=== PATIENT | female | born 2000 | race Caucasian/White ===

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

== ENCOUNTER → 2020-10-05 | Outpatient (CLI) | payer OTHER ==
[2020-10-05 09:24] LABS: HCG, SERUM QUANTITATIVE < 1.0 MIU/ML
[2020-10-05 09:29] LABS: HCG, SERUM QUALITATIVE NEGATIVE (NEGATIVE)
== END ==
LOC: M LAB 08:15
PROVIDERS: ATTEND Nurse Practitioner Family
DX: N91.2 Amenorrhea, unspecified (principal)

== ENCOUNTER → 2021-08-23 | Outpatient (CLI) | payer OTHER ==
[2021-08-23 16:12] LABS: BASO % 0.4 % (0.0-1.0); EOS # 0.2 10^3/uL (0.0-0.5); EOS % 1.6 % (0.0-3.0); HEMATOCRIT 40.8 % (36.0-47.0); HEMOGLOBIN 13.4 g/dl (12.0-15.5); LYMPH # 1.9 10^3/uL (1.5-5.0); LYMPH % 20.3 % (24.0-44.0); MEAN CORPUSCULAR HEMOGLOBIN 26.1 pg (27.0-33.0); MEAN CORPUSCULAR HGB CONC 32.8 g/dl (32.0-36.5); MEAN CORPUSCULAR VOLUME 79.4 fl (80.0-96.0); MONO # 0.6 10^3/uL (0.0-0.8); MONO % 6.6 % (2.0-8.0); NEUTROPHILS # 6.7 10^3/uL (1.5-8.5); NEUTROPHILS % 70.3 % (36.0-66.0); PLATELET COUNT, AUTOMATED 241 10^3/uL (150-450); RED BLOOD COUNT 5.14 10^6/uL (4.00-5.40); WHITE BLOOD COUNT 9.5 10^3/uL (4.0-10.0)
[2021-08-23 17:12] LABS: GC DNA AMPLIFICATION NEGATIVE (NEGATIVE)
== END ==
LOC: M PLALAB 13:04
PROVIDERS: ATTEND Obstetrics & Gynecology
DX: O34.211 Maternal care for low transverse scar from previous cesarean delivery (principal)

== ENCOUNTER → 2021-10-07 | Outpatient (CLI) | payer OTHER | LOC: M WHC 10:02 | PROVIDERS: ATTEND Obstetrics & Gynecology | DX: Z36.89 Encounter for other specified antenatal screening (principal); Z3A.18 18 weeks gestation of pregnancy ==

== ENCOUNTER → 2021-11-30 | Outpatient (CLI) | payer OTHER ==
[2021-11-30 15:48] LABS: HEMATOCRIT 35.4 % (36.0-47.0); HEMOGLOBIN 11.2 g/dl (12.0-15.5); MEAN CORPUSCULAR HEMOGLOBIN 26.4 pg (27.0-33.0); MEAN CORPUSCULAR HGB CONC 31.6 g/dl (32.0-36.5); MEAN CORPUSCULAR VOLUME 83.3 fl (80.0-96.0); PLATELET COUNT, AUTOMATED 203 10^3/uL (150-450); RED BLOOD COUNT 4.25 10^6/uL (4.00-5.40); WHITE BLOOD COUNT 9.4 10^3/uL (4.0-10.0)
[2021-11-30 16:44] LABS: GC DNA AMPLIFICATION NEGATIVE (NEGATIVE)
== END ==
LOC: M PLALAB 11:39
PROVIDERS: ATTEND Obstetrics & Gynecology
DX: Z36.89 Encounter for other specified antenatal screening (principal); Z3A.24 24 weeks gestation of pregnancy

== ENCOUNTER → 2021-11-30 | Outpatient (CLI) | payer OTHER | LOC: M WHC 09:22 | PROVIDERS: ATTEND Obstetrics & Gynecology | DX: Z36.2 Encounter for other antenatal screening follow-up (principal) ==

== ENCOUNTER → 2022-01-25 | Outpatient (REF) | payer OTHER | LOC: M SFHCWAGY 12:54 | PROVIDERS: ATTEND Obstetrics & Gynecology | DX: Z36.89 Encounter for other specified antenatal screening (principal); Z3A.36 36 weeks gestation of pregnancy ==

== ENCOUNTER 2022-01-27 13:42 | Outpatient (CLI) | payer OTHER ==
[~2022-01-27] VITALS: Ht 167.6 cm; Wt 100.4 kg
[2022-01-27] MEDS ORDERED: TUMS750C5 PO (14:02)
[2022-01-27] MEDS ORDERED: ACET-897 PO (14:02)
[2022-01-27] MEDS ORDERED: PRENTAB9 PO (14:02)
[2022-01-27] MEDS ORDERED: HOME MED LIST COMPLETE! XX SCH (14:05)
[2022-01-27 14:06] VITALS: BP 145/86
[2022-01-27 14:58] VITALS: BP 148/85
[2022-01-27 15:56] VITALS: BP 146/88
[2022-01-27 16:07] LABS: HEMATOCRIT 31.2 % (36.0-47.0); HEMOGLOBIN 9.6 g/dl (12.0-15.5); MEAN CORPUSCULAR HEMOGLOBIN 24.2 pg (27.0-33.0); MEAN CORPUSCULAR HGB CONC 30.8 g/dl (32.0-36.5); MEAN CORPUSCULAR VOLUME 78.6 fl (80.0-96.0); PLATELET COUNT, AUTOMATED 223 10^3/uL (150-450); RED BLOOD COUNT 3.97 10^6/uL (4.00-5.40); WHITE BLOOD COUNT 9.9 10^3/uL (4.0-10.0)
[2022-01-27 16:56] VITALS: BP 141/76
[2022-01-27 17:09] VITALS: BP 142/75
[2022-01-27 17:12] LABS: ALBUMIN 2.5 GM/DL (3.2-5.2); ALT/SGPT 12 U/L (12-78); BILIRUBIN,TOTAL 0.7 MG/DL (0.2-1.0); BLOOD UREA NITROGEN 6 MG/DL (7-18); CALCIUM LEVEL 8.3 MG/DL (8.5-10.1); CARBON DIOXIDE LEVEL 24 MEQ/L (21-32); CHLORIDE LEVEL 109 MEQ/L (98-107); CREATININE FOR GFR 0.55 MG/DL (0.55-1.30); GLOMERULAR FILTRATION RATE > 60.0 (>60); GLUCOSE, FASTING 84 MG/DL (70-100); LDH LACTATE DEHYDROGENASE 191 U/L (84-246); POTASSIUM SERUM 4.1 MEQ/L (3.5-5.1); SODIUM LEVEL 138 MEQ/L (136-145); TOTAL PROTEIN 6.1 GM/DL (6.4-8.2); URIC ACID 3.2 MG/DL (2.6-6.0)
[2022-01-27 18:20] LABS: TOTAL PROTEIN,RANDOM URINE 25.1 MG/DL (0.0-12.0)
== END 2022-01-27 17:18 | disposition home or self-care (01) ==
LOC: M LDO 13:42
PROVIDERS: ATTEND Obstetrics & Gynecology
DX: O26.893 Other specified pregnancy related conditions, third trimester (principal); R10.2 Pelvic and perineal pain; O47.03 False labor before 37 completed weeks of gestation, third trimester; Z3A.36 36 weeks gestation of pregnancy

== ENCOUNTER → 2022-02-13 | Outpatient (CLI) | payer OTHER ==
[~2022-02-13] MED LIST: ACET-897 PO; PRENTAB9 PO; TUMS750C5 PO
== END ==
LOC: M LABSMTC 09:58
PROVIDERS: ATTEND Anesthesiology
DX: Z01.812 Encounter for preprocedural laboratory examination (principal)

== ENCOUNTER 2022-02-17 07:03 | Inpatient (IN) | payer OTHER ==
[~2022-02-17] VITALS: Ht 167.6 cm; Wt 103.1 kg
[2022-02-17] VITALS (7 sets, daily range): BP systolic 137–177; BP diastolic 72–88
[2022-02-17] MEDS ORDERED: HOME MED LIST COMPLETE! XX SCH (07:15)
[2022-02-17 08:27] LABS: HEMATOCRIT 31.2 % (36.0-47.0); HEMOGLOBIN 9.8 g/dl (12.0-15.5); MEAN CORPUSCULAR HGB CONC 31.4 g/dl (32.0-36.5); MEAN CORPUSCULAR VOLUME 76.5 fl (80.0-96.0); PLATELET COUNT, AUTOMATED 193 10^3/uL (150-450); RED BLOOD COUNT 4.08 10^6/uL (4.00-5.40); WHITE BLOOD COUNT 9.8 10^3/uL (4.0-10.0)
[2022-02-17] MEDS ORDERED: ceFAZolin SOD 2 GM in IV 1 EA IV ONE (09:00)
[2022-02-17] MEDS ORDERED: LR 1,000 ML IV SCH ×2 (09:00→11:40)
[2022-02-17] MEDS ORDERED: BICITRA 30ML SOLN UDC PO ONE (09:00)
[2022-02-17] MEDS ORDERED: LR 1,000 ML IV ONE (09:00)
[2022-02-17] MEDS ORDERED: OXYTOCIN DRIP 30 UNITS in IV 1 EA IV SCH (09:50)
[2022-02-17] MEDS ORDERED: RHOGAM 300 MCG (1500 IU) INJ (J2790) IM SCH (09:50)
[2022-02-17] MEDS ORDERED: SIMETHICONE 80MG CHEW TAB PO PRN (09:50)
[2022-02-17] MEDS ORDERED: MOM 30ML SUSPENSION UDC PO PRN (09:50)
[2022-02-17] MEDS ORDERED: PERCOCET 5MG/325MG TAB PO PRN ×3 (09:50→11:40)
[2022-02-17] MEDS ORDERED: ONDANSETRON 4MG 2ML VIAL IV PRN ×2 (09:50→11:40)
[2022-02-17] MEDS ORDERED: MORPHINE PRES-FREE INJ 10 MG/10 ML VIAL As Ordered ONE (10:17)
[2022-02-17] MEDS ORDERED: METOCLOPRAMIDE INJ 10MG/2ML VIAL (J2765 PER 1) As Ordered ONE (10:17)
[2022-02-17] MEDS ORDERED: ONDANSETRON 4MG 2ML VIAL As Ordered ONE (10:17)
[2022-02-17] MEDS ORDERED: OXYTOCIN 30 UNITS IN 0.9% NaCl 500ML IV BAG (J2590) As Ordered ONE ×2 (10:17→11:02)
[2022-02-17] MEDS ORDERED: KETOROLAC 60MG 2ML VIAL As Ordered ONE (10:17)
[2022-02-17] MEDS ORDERED: ACETAMINOPHEN 1000MG 100ML IV BTL (OFIRMEV) (J0131 PER 10MG) As Ordered ONE (10:17)
[2022-02-17] MEDS ORDERED: dexameTHASONE 4 MG/ML 1ML VIAL (J1100 PER 1MG) As Ordered ONE (10:17)
[2022-02-17] MEDS: LR 1,000 ML IV SCH ×2 (11:39→17:50)
[2022-02-17] MEDS ORDERED: diphenhydrAMINE 50MG/ML VIAL (J1200) IV PRN (11:40)
[2022-02-17] MEDS ORDERED: NALOXONE INJ 0.4MG/1ML VIAL (J2310 PER 1MG) IV PRN ×2 (11:40)
[2022-02-17] MEDS: SLF 3 ML SYR IV SCH ×2 (11:40→19:40)
[2022-02-17] MEDS ORDERED: METOCLOPRAMIDE INJ 10MG/2ML VIAL (J2765 PER 1) IV PRN (11:40)
[2022-02-17] MEDS ORDERED: **NOTE PATIENT COMMENT** MISC XX SCH (11:40)
[2022-02-17] MEDS ORDERED: fentaNYL 100 MCG/2 ML INJECTION IV PRN (11:40)
[2022-02-17] MEDS ORDERED: TRANEXAMIC ACID INJection 1,000 MG in NS 100 ML IV PRN (12:25)
[2022-02-17] MEDS ORDERED: METHYLERGONOVINE MALEATE 0.2 MG/ML VIAL (J2210) IM ONE (12:25)
[2022-02-17] MEDS: KETOROLAC 30 MG/ML 1ML VIAL IV SCH ×2 (18:04→22:40)
[2022-02-17] MEDS: DOCUSATE SODIUM 100MG CAPSULE PO SCH (22:40)
[2022-02-18] MEDS: LR 1,000 ML IV SCH (01:50)
[2022-02-18 02:00] VITALS: BP 129/64
[2022-02-18] MEDS: SLF 3 ML SYR IV SCH (03:40)
[2022-02-18] MEDS: KETOROLAC 30 MG/ML 1ML VIAL IV SCH (04:24)
[2022-02-18 06:00] VITALS: BP 136/86
[2022-02-18] MEDS: PRENATAL VITAMINS CHEWABLE TABLET PO SCH (08:45)
[2022-02-18] MEDS: DOCUSATE SODIUM 100MG CAPSULE PO SCH ×2 (08:45→21:00)
[2022-02-18 08:51] LABS: HEMATOCRIT 23.2 % (36.0-47.0); MEAN CORPUSCULAR HEMOGLOBIN 23.8 pg (27.0-33.0); MEAN CORPUSCULAR VOLUME 76.8 fl (80.0-96.0); PLATELET COUNT, AUTOMATED 150 10^3/uL (150-450); RED BLOOD COUNT 3.02 10^6/uL (4.00-5.40); WHITE BLOOD COUNT 10.5 10^3/uL (4.0-10.0)
[2022-02-18 08:58] LABS: HEMOGLOBIN 7.2 g/dl (12.0-15.5)
[2022-02-18 10:00] VITALS: BP 119/57
[2022-02-18 14:00] VITALS: BP 113/55
[2022-02-18] MEDS: IBUPROFEN 800 MG TAB PO SCH ×2 (15:12→21:01)
[2022-02-18 18:00] VITALS: BP 114/66
[2022-02-18 22:00] VITALS: BP 132/74
[2022-02-19 02:00] VITALS: BP 133/80
[2022-02-19] MEDS: IBUPROFEN 800 MG TAB PO SCH (05:16)
[2022-02-19 06:07] VITALS: BP 134/70
[2022-02-19] MEDS: PRENATAL VITAMINS CHEWABLE TABLET PO SCH (08:22)
[2022-02-19] MEDS ORDERED: COLA100C5 PO (08:48)
[2022-02-19] MEDS ORDERED: IBUP80TA PO (08:48)
[2022-02-19] MEDS ORDERED: PERCOCET PO (08:48)
[2022-02-19] MEDS ORDERED: MEASLES,MUMPS,RUBELLA VACCINE INJ (MMR-II) (90707) SC.IMMUN ONE (09:00)
[2022-02-19 09:56] VITALS: BP 140/73
[2022-02-19] MEDS ORDERED: FERR325T3 PO (10:07)
[2022-02-19] MEDS ORDERED: NORE0.353 PO (10:08)
== END 2022-02-19 12:07 | disposition home or self-care (01) | DRG 540 ==
LOC: M LDI 07:03 → M OBS 14:17
PROVIDERS: ADMIT Obstetrics & Gynecology; ATTEND Obstetrics & Gynecology
PROC: 10D00Z1 Extraction of Products of Conception, Low, Open Approach (ICD-10-PCS; principal; 2022-02-17 09:30)
DX: O34.211 Maternal care for low transverse scar from previous cesarean delivery (principal); Z3A.39 39 weeks gestation of pregnancy; Z37.0 Single live birth

== ENCOUNTER → 2022-12-02 | Outpatient (REF) | payer OTHER ==
[~2022-12-02] MED LIST changes: +COLA100C5 PO; +FERR325T3 PO; +IBUP80TA PO; +NORE0.353 PO; +PERCOCET PO
== END ==
LOC: M SFHCWAGY 13:01
PROVIDERS: ATTEND Nurse Practitioner Family
DX: Z12.4 Encounter for screening for malignant neoplasm of cervix (principal)

== ENCOUNTER → 2024-05-02 | Outpatient (REF) | payer OTHER ==
[2024-05-02 15:53] LABS: Trichomonas vaginalis (AMP) NOT DETECTED (NEGATIVE)
[2024-05-02 16:14] LABS: GC DNA AMPLIFICATION NEGATIVE (NEGATIVE)
== END ==
LOC: M SFHCWAGY 14:18
PROVIDERS: ATTEND Nurse Practitioner Family
DX: Z12.4 Encounter for screening for malignant neoplasm of cervix (principal); R87.612 Low grade squamous intraepithelial lesion on cytologic smear of cervix (LGSIL)

== ENCOUNTER 2024-10-02 10:52 | Day surgery (SDC) | payer OTHER ==
[~2024-10-02] VITALS: Ht 167.6 cm; Wt 102.7 kg
[~2024-10-02 10:52] MED LIST changes: +DEBL1TAB PO
[2024-10-02] MEDS ORDERED: LR 1,000 ML IV SCH (11:10)
[2024-10-02 11:44] LABS: HEMATOCRIT 40.4 % (36.0-47.0); MEAN CORPUSCULAR HEMOGLOBIN 21.6 pg (27.0-33.0); MEAN CORPUSCULAR HGB CONC 29.7 g/dl (32.0-36.5); MEAN CORPUSCULAR VOLUME 72.7 fl (80.0-96.0); PLATELET COUNT, AUTOMATED 331 10^3/uL (150-450); RED BLOOD COUNT 5.56 10^6/uL (4.00-5.40)
[2024-10-02] MEDS ORDERED: propofoL 200 MG/20 ML VIAL As Ordered ONE (13:10)
[2024-10-02] MEDS ORDERED: MIDAZOLAM INJ 2MG/2ML VIAL As Ordered ONE (13:10)
[2024-10-02] MEDS ORDERED: ONDANSETRON 4MG 2ML VIAL As Ordered ONE (13:10)
[2024-10-02] MEDS ORDERED: ROCURONIUM BROMIDE 50MG/5ML VIAL As Ordered ONE (13:10)
[2024-10-02] MEDS ORDERED: LIDOCAINE 2% 100MG/5ML SDV (FOR ANES.) As Ordered ONE (13:10)
[2024-10-02] MEDS ORDERED: fentaNYL 100 MCG/2 ML INJECTION As Ordered ONE (13:11)
[2024-10-02] MEDS ORDERED: KETOROLAC 30 MG/ML 1ML VIAL As Ordered ONE (14:08)
[2024-10-02] MEDS ORDERED: SUGAMMADEX SODIUM 500 MG/5 ML VIAL (BRIDION) As Ordered ONE (14:08)
[2024-10-02] MEDS ORDERED: ONDANSETRON 4MG 2ML VIAL IV PRN (14:25)
[2024-10-02] MEDS ORDERED: fentaNYL 100 MCG/2 ML INJECTION IV PRN (14:25)
[2024-10-02] MEDS ORDERED: PERCOCET 5MG/325MG TAB PO PRN (15:10)
[2024-10-02 15:35] VITALS: BP 143/67; TEMP 97.4; O2SAT 99
[2024-10-02] MEDS ORDERED: KETOROLAC 30 MG/ML 1ML VIAL IV SCH (21:00)
== END 2024-10-02 15:40 | disposition home or self-care (01) ==
LOC: M SDC 10:52
PROVIDERS: ATTEND Obstetrics & Gynecology
DX: Z30.2 Encounter for sterilization (principal); N83.8 Other noninflammatory disorders of ovary, fallopian tube and broad ligament; Z91.048 Other nonmedicinal substance allergy status
CPT/HCPCS: 36415; 58661; 81025; 85027; 86850; 86900; 86901; 88302; J0665; J1100; J1885; J2250; J2405; J3010